=== PATIENT | female | born 1945 | race Asian ===

== ENCOUNTER 2017-08-30 14:19 | Outpatient (CLI) | payer OTHER | END 2017-08-30 15:20 | disposition home or self-care (01) | LOC: RAD 14:19 | DX: M25.562 Pain in left knee (principal) ==

== ENCOUNTER 2017-11-01 15:32 | Outpatient (CLI) | payer OTHER ==
[2017-11-01 15:51] LABS: PLATELET COUNT 312 K/uL (152-353)
== END 2017-11-01 20:09 | disposition home or self-care (01) ==
LOC: LABW 15:32
PROVIDERS: Physician Assistant
DX: M25.462 Effusion, left knee (principal)
CPT/HCPCS: 36415; 85027; 85651; 86140

== ENCOUNTER 2018-02-21 13:23 | Outpatient (CLI) | payer OTHER | END 2018-02-21 19:51 | disposition home or self-care (01) | LOC: RAD 13:23 | DX: M25.562 Pain in left knee (principal) ==

== ENCOUNTER 2018-02-28 13:40 | Outpatient (CLI) | payer OTHER | END 2018-02-28 22:42 | disposition home or self-care (01) | LOC: US 13:40 | DX: R60.0 Localized edema (principal) ==

== ENCOUNTER 2019-08-14 15:46 | Outpatient (CLI) | payer OTHER | END 2019-08-14 20:48 | disposition home or self-care (01) | LOC: RAD 15:46 | DX: M85.89 Other specified disorders of bone density and structure, multiple sites (principal) ==